=== PATIENT | male | born 1995 | race Two or more races ===

== ENCOUNTER 2018-01-07 21:59 | Emergency (ER) | payer BC, OTHER ==
--- NOTE | 2018-01-07 23:20 | EDM.PDOC ---
ED HPI GENERAL MEDICAL PROBLEM - General Chief Complaint: Skin Complaint Stated Complaint: PT HAS BOIL ON RT ARM Time Seen by Provider: 01/07/18 23:05 - History of Present Illness INITIAL COMMENTS - FREE TEXT/NARRATIVE: HISTORY AND PHYSICAL: History of present illness: Patient's 22-year-old white male history of IV drug abuser presents with concern of a cutaneous abscess to his right forearm related to injecting IV drugs is been over the last several weeks More indurated and slightly more fluctuant additional fever chills nausea vomiting or other complaints Review of systems: As per history of present illness and below otherwise all systems reviewed and negative. Past medical history: As per history of present illness and as reviewed below otherwise noncontributory. Surgical history: As per history of present illness and as reviewed below otherwise noncontributory. Social history: No reported history of drug or alcohol abuse. Family history: As per history of present illness and as reviewed below otherwise noncontributory. Physical exam: HEENT: Atraumatic, normocephalic, pupils reactive, negative for conjunctival pallor or scleral icterus, mucous membranes moist, throat clear, neck supple, nontender, trachea midline. Lungs: Clear to auscultation, breath sounds equal bilaterally, chest nontender. Heart: S1S2, regular, negative for clicks, rubs, or JVD. Abdomen: Soft, nondistended, nontender. Negative for masses or hepatosplenomegaly. Negative for costovertebral tenderness. Pelvis: Stable nontender. Genitourinary: Deferred. Rectal: Deferred. Extremities: Patient has approximately a 4 x 3 cm indurated area with some central fluctuance noted in his right distal arm this is just proximal to his anterior cubital fossa. Neuro: Awake, alert, oriented. Cranial nerves II through XII unremarkable. Cerebellum unremarkable. Motor and sensory unremarkable throughout. Exam nonfocal. Diagnostics: Deferred Therapeutics: Patient was prepped in a sterile manner and anesthetized with 1% lidocaine without epinephrine incision and drainage with a 11 blade scalpel was accomplished with approximately 3 mL of vj pus with some subsequent serosanguineous discharge this was packed with half-inch iodoform gauze and dressed Impression: #1 history of IV drug abuse #2 cutaneous abscess status post incision and drainage right upper extremity Definitive disposition and diagnosis as appropriate pending reevaluation and review of above. ED ROS GENERAL - Review of Systems Review Of Systems: ROS reveals no pertinent complaints other than HPI. ED EXAM, SKIN/RASH Exam: See Below (See dictation) Course - Orders/Labs/Meds Meds: Medications Discontinued Medications Generic Name Dose Route Start Last Admin Trade Name Oneil PRN Reason Stop Dose Admin Lidocaine HCl Confirm 01/07/18 23:08 Xylocaine-Mpf 1% Administered 01/07/18 23:09 Dose 5 mls @ as directed .ROUTE .STK-MED ONE Lidocaine HCl 5 ml 01/07/18 23:05 Xylocaine-Mpf 1% INJECT 01/07/18 23:06 ONETIME ONE Departure - Departure Time of Disposition: 23:18 Disposition: Home, Self-Care 01 Condition: Good Clinical Impression: Cutaneous abscess, IV drug abuse - Discharge Information *PRESCRIPTION DRUG MONITORING PROGRAM REVIEWED*: Not Applicable *COPY OF PRESCRIPTION DRUG MONITORING REPORT IN PATIENT BASSAM: Not Applicable Referrals: PCP,None [Primary Care Provider] - Additional Instructions: The following information is given to patients seen in the emergency department who are being discharged to home. This information is to outline your options for follow-up care. We provide all patients seen in our emergency department with a follow-up referral. The need for follow-up, as well as the timing and circumstances, are variable depending upon the specifics of your emergency department visit. If you don't have a primary care physician on staff, we will provide you with a referral. We always advise you to contact your personal physician following an emergency department visit to inform them of the circumstance of the visit and for follow-up with them and/or the need for any referrals to a consulting specialist. The emergency department will also refer you to a specialist when appropriate. This referral assures that you have the opportunity for followup care with a specialist. All of these measure are taken in an effort to provide you with optimal care, which includes your followup. Under all circumstances we always encourage you to contact your private physician who remains a resource for coordinating your care. When calling for followup care, please make the office aware that this follow-up is from your recent emergency room visit. If for any reason you are refused follow-up, please contact the [facility] emergency department at and asked to speak to the emergency department charge nurse. [facility] Special[facility] - General Surgery Professional Building [address] [place] [address], [address] [place] [address] Follow-up for reevaluation and packing removal 24-48 hours call schedule appointment with general surgery above clindamycin and Bactrim as prescribed return as needed as discussed
== END 2018-01-07 23:25 | disposition home or self-care (01) ==
LOC: MW.ED 21:59
DX: L02.413 Cutaneous abscess of right upper limb (principal); F19.10 Other psychoactive substance abuse, uncomplicated
CPT/HCPCS: 87070; 87077; 87186; 99283

== ENCOUNTER 2018-01-10 15:25 | Emergency (ER) | payer BC ==
--- NOTE | 2018-01-10 16:17 | EDM.PDOC ---
ED HPI GENERAL MEDICAL PROBLEM - General Chief Complaint: Wound Recheck Stated Complaint: PT IS HERE FOR A WOUND CARE Time Seen by Provider: 01/10/18 16:11 Source of Information: Reports: Patient History Limitations: Reports: No Limitations - History of Present Illness INITIAL COMMENTS - FREE TEXT/NARRATIVE: HISTORY AND PHYSICAL: []22-year-old male presents for evaluation History of Present Illness: []Patient is a known IV drug user who states that he is trying to get off the IV drugs and as started smoking heroin instead He is asking about treatment centers/his accompanied by his mother Patient has been at [facility] in [place] without successful outcome. Review of Systems: As per history of present illness and below otherwise all systems reviewed and negative. Past medical history: As per history of present illness and as reviewed below otherwise noncontributory. Surgical history: As per history of present illness and as reviewed below otherwise noncontributory. Social history: No reported history of drug or alcohol abuse. Family history: As per history of present illness and as reviewed below otherwise noncontributory. Physical exam: Alert and oriented gentleman answering questions appropriately in full sentences without any shortness of breath HEENT: Atraumatic, normocehpalic, pupils reactive, negative for conjunctival pallor or scleral icterus, mucous membranes moist, throat clear, neck supple, nontender, trachea midline. Lungs: Clear to auscultation, breath sounds equal bilaterally, chest non tender. Heart: S1S2, regular, negative for clicks, rubs, or JVD. Abdomen: Soft, nondistended, nontender. Negative for masses or hepatossplenmegaly. Negative for costovertebral tenderness. Pelvis: Stable nontender. Genitourinary: Deferred. Rectal: Deferred Extremities: Right forearm where dressing had been there is a hard area that he has been closed .pressure does not elicit any fluid coming out of this negative for cords or calf pain. Neurovascular unremarkable. Neuro: Awake, alert, oriented. Cranial nerves II through XII unremarkable. Cerebellum unremarkable. Motor and sensory unremarkable throughout. Exam nonfocal. Diagnostics: [] Therapeutics: [] Impression: []Abscess to right forearm/cellulitis Plan: []Discharge InFormation given on centers for addiction Keep your appointment as scheduled next Saturday with local surgeon Turned to the emergency department as directed and discussed Definitive disposition and diagnosis as appropriate pending reevaluation and review of above. Onset: Gradual Duration: Day(s): Location: Reports: Upper Extremity, Right Quality: Reports: Throbbing Severity: Mild Improves with: Reports: None Worsens with: Reports: None Right Arm Pain Score (Numeric/FACES): 3 - Related Data Allergies Allergy/AdvReac Type Severity Reaction Status Date / Time No Known Allergies Allergy Verified 01/10/18 15:51 Home Meds: Home Meds . [No Known Home Meds] 01/07/18 [History] Past Medical History - Past Surgical History HEENT Surgical History: Reports: Tonsillectomy Social & Family History - Family History Family Medical History: Noncontributory - Tobacco Use Smoking Status *Q: Current Every Day Smoker Years of Tobacco use: 10 Packs/Tins Daily: 0.5 - Recreational Drug Use Recreational Drug Use: Yes Drug Use in Last 12 Months: Yes Recreational Drug Type: Reports: Marijuana/Hashish ED ROS GENERAL - Review of Systems Review Of Systems: ROS reveals no pertinent complaints other than HPI. ED EXAM, SKIN/RASH Exam: See Below (see dictation) Course - Vital Signs Last Recorded V/S: Last Vital Signs Temp 36.8 C 01/10/18 15:52 Pulse 76 01/10/18 15:52 Resp 16 01/10/18 15:52 BP 130/74 01/10/18 15:52 Pulse Ox 95 01/10/18 15:52 Departure - Departure Time of Disposition: 16:17 Disposition: Home, Self-Care 01 Condition: Good Clinical Impression: Cellulitis Qualifiers: Site of cellulitis of extremity: upper extremity Laterality: right - Discharge Information Instructions: Cellulitis, Adult Referrals: PCP,None [Primary Care Provider] - Additional Instructions: The following information is given to patients seen in the emergency department who are being discharged to home. This information is to outline your options for follow-up care. We provide all patients seen in our emergency department with a follow-up referral. The need for follow-up, as well as the timing and circumstances, are variable depending upon the specifics of your emergency department visit. If you don't have a primary care physician on staff, we will provide you with a referral. We always advise you to contact your personal physician following an emergency department visit to inform them of the circumstance of the visit and for follow-up with them and/or the need for any referrals to a consulting specialist. Discharge InFormation given on centers for addiction Keep your appointment as scheduled next Saturday with local surgeon Turned to the emergency department as directed and discussed The emergency department will also refer you to a specialist when appropriate. This referral assures that you have the opportunity for followup care with a specialist. All of these measure are taken in an effort to provide you with optimal care, which includes your followup. Under all circumstances we always encourage you to contact your private physician who remains a resource for coordinating your care. When calling for followup care, please make the office aware that this follow-up is from your recent emergency room visit. If for any reason you are refused follow-up, please contact the [facility] emergency department at and asked to speak to the emergency department charge nurse.
== END 2018-01-10 16:45 | disposition home or self-care (01) ==
LOC: MW.ED 15:25
DX: L02.413 Cutaneous abscess of right upper limb (principal); L03.113 Cellulitis of right upper limb; F17.210 Nicotine dependence, cigarettes, uncomplicated
CPT/HCPCS: 99282

== ENCOUNTER 2019-05-25 17:54 | Emergency (ER) | payer BC ==
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
--- NOTE | 2019-05-25 18:55 | CR ---
Indication: Syncope. Technique: A single AP portable view of the chest. Comparison: None Findings: The heart is normal in size. The lungs are clear. No infiltrate, pleural effusion, or pneumothorax is identified. Impression: No acute cardiopulmonary process Dictated by Saundra Harrington MD @ May 25 2019 6:54PM Signed by Dr. Saundra Harrington @ May 25 2019 6:55PM
[2019-05-25 18:58] LABS: BLOOD UREA NITROGEN,BUN 9 mg/dL (7.0-18.0); CARBON DIOXIDE,CO2 27.6 mmol/L (21.0-32.0); CHLORIDE,CL 104 mmol/L (98-107); GLUCOSE RANDOM 110 mg/dL (74-106); POTASSIUM,K 4.2 mmol/L (3.5-5.1); SODIUM,NA 140 mmol/L (136-148)
--- NOTE | 2019-05-25 19:23 | CT ---
INDICATION: Syncope, pain TECHNIQUE: CT head without contrast. COMPARISON: None FINDINGS: CSF spaces: Within normal limits for age. Brain parenchyma: The dorado-white differentiation is normal. No sign of mass, hemorrhage, or midline shift. Skull base and calvarium: The visualized paranasal sinuses and mastoid air cells demonstrate no acute or significant findings. The visualized orbits are grossly unremarkable. No skull fractures. IMPRESSION: Unremarkable noncontrast head CT. Dictated by Willis Menendez MD @ 05/25/2019 7:21:46 PM Please note that all CT scans at this facility use dose modulation, iterative reconstruction, and/or weight-based dosing when appropriate to reduce radiation dose to as low as reasonably achievable. Dictated by: Willis Menendez MD @ 05/25/2019 19:21:51 (Electronically Signed)
== END 2019-05-25 20:20 | disposition home or self-care (01) ==
LOC: MW.ED 17:54
DX: F15.10 Other stimulant abuse, uncomplicated (principal); F11.10 Opioid abuse, uncomplicated; F41.9 Anxiety disorder, unspecified; F17.210 Nicotine dependence, cigarettes, uncomplicated; Z79.899 Other long term (current) drug therapy; Z79.01 Long term (current) use of anticoagulants
CPT/HCPCS: 36415; 70450; 70450-26; 71045; 71045-26; 80053; 80305-QW; 81003; 84484; 85025; 93005; 99284; 99284-25; G0480

== ENCOUNTER 2019-06-17 10:01 | Emergency (ER) | payer BC ==
--- NOTE | 2019-06-17 10:13 | EDM.PDOC ---
ED HPI GENERAL MEDICAL PROBLEM - General Chief Complaint: General Stated Complaint: MEDICAL CLARANCE Time Seen by Provider: 06/17/19 10:03 Source of Information: Reports: Patient History Limitations: Reports: No Limitations - History of Present Illness INITIAL COMMENTS - FREE TEXT/NARRATIVE: HISTORY AND PHYSICAL: History of present illness: Patient is a 23-year-old male presents to the ED in police custody for medical clearance. Patient has no medical complaints at this time but is needing refill of medications. He denies chest pain, shortness of breath, fevers, chills, nausea, vomiting, abdominal pain. Review of systems: As per history of present illness and below otherwise all systems reviewed and negative. Past medical history: As per history of present illness and as reviewed below otherwise noncontributory. Surgical history: As per history of present illness and as reviewed below otherwise noncontributory. Social history: No reported history of drug or alcohol abuse. Family history: As per history of present illness and as reviewed below otherwise noncontributory. Physical exam: General: Patient sitting comfortably in no acute distress and nontoxic appearing HEENT: Atraumatic, normocephalic, pupils reactive, negative for conjunctival pallor or scleral icterus, mucous membranes moist, throat clear, neck supple, nontender, trachea midline. No meningeal signs. Lungs: Clear to auscultation, breath sounds equal bilaterally, chest nontender. Heart: S1S2, regular, negative for clicks, rubs, or overt murmur. Abdomen: Soft, nondistended, nontender. Negative for masses or hepatosplenomegaly. Negative for costovertebral tenderness. No rigidity, rebound , guarding. Pelvis: Stable nontender. Genitourinary: Deferred. Rectal: Deferred. Extremities: Atraumatic, negative for cords or calf pain. Neurovascular unremarkable. Neuro: Awake, alert, oriented. Cranial nerves II through XII unremarkable. Cerebellum unremarkable. Motor and sensory unremarkable throughout. Exam nonfocal. Notes: Diagnostics: POC glucose Therapeutics: None Prescriptions: Eliquis, hydroxyzine, gabapentin, Paxil Impression: Medical clearance Plan: Follow-up with primary care provider Return to ED as needed as discussed Definitive disposition and diagnosis as appropriate pending reevaluation and review of above. - Related Data Allergies Allergy/AdvReac Type Severity Reaction Status Date / Time No Known Allergies Allergy Verified 06/17/19 10:13 Home Meds: Home Meds Apixaban [Eliquis] 1 tab PO DAILY 05/16/19 [History] Docusate Sodium 1 tab PO DAILY 05/16/19 [History] Gabapentin [Neurontin] 1 tab PO DAILY 05/16/19 [History] PARoxetine [Paxil] 1 tab PO DAILY 05/16/19 [History] hydrOXYzine HCL [Hydroxyzine HCl] 1 tab PO DAILY 05/16/19 [History] oxyCODONE HCl/Acetaminophen [Oxycodone-Acetaminophen 5-325] 1 tab PO ASDIRECTED PRN 05/16/19 [History] traMADol [Ultram] 1 tab PO DAILY 05/16/19 [History] Apixaban [Eliquis] 5 mg PO 10 #10 tablet 06/17/19 [Rx] Gabapentin [Neurontin] 300 mg PO DAILY 10 Days #10 cap 06/17/19 [Rx] PARoxetine HCl [Paxil] 10 mg PO 10 #10 tablet 06/17/19 [Rx] hydrOXYzine HCL [Atarax] 25 mg PO DAILY 10 Days #10 tab 06/17/19 [Rx] Past Medical History HEENT History: Reports: None Cardiovascular History: Reports: None Respiratory History: Reports: None Gastrointestinal History: Reports: None Genitourinary History: Reports: None Musculoskeletal History: Reports: None Neurological History: Reports: None Psychiatric History: Reports: Anxiety Endocrine/Metabolic History: Reports: None Insulin Pump Model and Indirect Sales Exec: None Hematologic History: Reports: None Immunologic History: Reports: None Oncologic (Cancer) History: Reports: None Dermatologic History: Reports: None - Infectious Disease History Infectious Disease History: Reports: Chicken Pox - Past Surgical History Head Surgeries/Procedures: Reports: None HEENT Surgical History: Reports: None Other Musculoskeletal Surgeries/Procedures:: Bilat hip fractures, L femur fracture, L tib fib fx, saccral fx Social & Family History - Family History Family Medical History: Noncontributory - Caffeine Use Caffeine Use: Reports: Coffee ED ROS GENERAL - Review of Systems Review Of Systems: Comprehensive ROS is negative, except as noted in HPI. ED EXAM, GENERAL - Physical Exam Exam: See Below (See dictation) Course - Vital Signs Last Recorded V/S: Last Vital Signs Temp 98.2 F 06/17/19 10:13 Pulse 83 06/17/19 10:13 Resp 18 06/17/19 10:13 BP 127/76 06/17/19 10:13 Pulse Ox 99 06/17/19 10:13 Departure - Departure Time of Disposition: :23 Disposition: Home, Self-Care 01 Condition: Good Clinical Impression: Medical clearance for incarceration - Discharge Information Prescriptions: Apixaban [Eliquis] 5 mg PO 10 #10 tablet Gabapentin [Neurontin] 300 mg PO DAILY 10 Days #10 cap hydrOXYzine HCL [Atarax] 25 mg PO DAILY 10 Days #10 tab PARoxetine HCl [Paxil] 10 mg PO 10 #10 tablet Referrals: Cresencio Shah MD [Primary Care Provider] - Forms: ED Department Discharge Additional Instructions: The following information is given to patients seen in the emergency department who are being discharged to home. This information is to outline your options for follow-up care. We provide all patients seen in our emergency department with a follow-up referral. The need for follow-up, as well as the timing and circumstances, are variable depending upon the specifics of your emergency department visit. If you don't have a primary care physician on staff, we will provide you with a referral. We always advise you to contact your personal physician following an emergency department visit to inform them of the circumstance of the visit and for follow-up with them and/or the need for any referrals to a consulting specialist. The emergency department will also refer you to a specialist when appropriate. This referral assures that you have the opportunity for follow-up care with a specialist. All of these measure are taken in an effort to provide you with optimal care, which includes your follow-up. Under all circumstances we always encourage you to contact your private physician who remains a resource for coordinating your care. When calling for follow-up care, please make the office aware that this follow-up is from your recent emergency room visit. If for any reason you are refused follow-up, please contact the [facility] Emergency Department at and asked to speak to the emergency department charge nurse. [facility] [address] [place] [id number] [address] [place] [address] Follow-up with primary care provider Return to ED as needed discussed Sepsis Event Note - Focused Exam Vital Signs: Vital Signs Temp Pulse Resp BP Pulse Ox 06/17/19 10:13 98.2 F 83 18 127/76 99 Date Exam was Performed: 06/17/19 Time Exam was Performed: 10:23
== END 2019-06-17 10:44 | disposition home or self-care (01) ==
LOC: MW.ED 10:01
DX: Z02.89 Encounter for other administrative examinations (principal)
CPT/HCPCS: 82962; 99282

== ENCOUNTER 2020-10-16 18:18 | Emergency (ER) | payer BC, MEDICAID, OTHER ==
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
[2020-10-16] MEDS: Ketorolac 60 MG/2 ML SDV IM ONE ×2 (19:09→19:12)
--- NOTE | 2020-10-16 19:56 | CR ---
The indication: Plantar pain with ambulation. Technique: Three views of the right foot. Comparison: None Findings: No acute fracture or subluxation is identified. A plantar calcaneal spur is not appreciated. No fracture or subluxation is identified. Impression: No acute finding Dictated by Saundra Harrington MD @ 10/16/2020 7:54:[address] Saundra Harrington @ Oct 16 2020 7:54PM
== END 2020-10-16 20:06 | disposition home or self-care (01) ==
LOC: MW.ED 18:18
DX: M79.671 Pain in right foot (principal); Z79.01 Long term (current) use of anticoagulants
CPT/HCPCS: 73630-26-RT; 73630-RT; 99283; 99283-25; J1885